=== PATIENT | male | born 1975 | race Caucasian/White ===

== ENCOUNTER 2020-08-05 21:21 | Emergency (ER) | payer SELFPAY ==
[~2020-08-05] VITALS: Ht 175.3 cm; Wt 72.6 kg
[2020-08-05] MEDS ORDERED: OXYACE7.5T PO (21:56)
[2020-08-05] MEDS ORDERED: CEPH500 PO (21:56)
[2020-08-05] MEDS ORDERED: SULTRIDS PO (21:56)
[2020-08-05] MEDS ORDERED: IBUP800 PO (21:56)
== END 2020-08-05 22:32 | disposition home or self-care (01) ==
LOC: ER 21:21
DX: L03.114 Cellulitis of left upper limb (principal)
CPT/HCPCS: 73120; 99283-25; A9270; A9270-GY